=== PATIENT | female | born 1960 | race Caucasian/White ===

== ENCOUNTER → 2024-01-12 08:58 | Outpatient (REF) | payer MEDICARE, OTHER, SELFPAY | LOC: HWRAD 08:58 | PROVIDERS: ATTENDING PHYSICIAN Internal Medicine Hematology & Oncology; FAMILY PHYSICIAN Nurse Practitioner Adult Health | DX: C18.7 Malignant neoplasm of sigmoid colon (principal); E55.9 Vitamin D deficiency, unspecified; G62.0 Drug-induced polyneuropathy; R11.2 Nausea with vomiting, unspecified | CPT/HCPCS: 71260; 74177; Q9967 ==

== ENCOUNTER → 2025-02-07 09:19 | Outpatient (REF) | payer MEDICARE, OTHER, SELFPAY | LOC: RAD 09:19 | PROVIDERS: ATTENDING PHYSICIAN Internal Medicine Hematology & Oncology; FAMILY PHYSICIAN Nurse Practitioner Adult Health | DX: C18.7 Malignant neoplasm of sigmoid colon (principal); E55.9 Vitamin D deficiency, unspecified; G62.0 Drug-induced polyneuropathy; R11.2 Nausea with vomiting, unspecified | CPT/HCPCS: 71260; 74177; Q9967 ==